=== PATIENT | female | born 1995 | race Caucasian/White ===

== ENCOUNTER 2019-11-25 15:28 | Emergency (ER) | payer OTHER ==
[~2019-11-25] VITALS: Ht 160 cm; Wt 49.9 kg
[2019-11-25] MEDS ORDERED: FOLIC ACID0.8 M1 (15:42)
[2019-11-25] MEDS ORDERED: PRENA1 CHEW TA1.4 MG (15:42)
== END 2019-11-25 19:49 | disposition home or self-care (01) ==
LOC: ER 15:28
DX: O98.512 Other viral diseases complicating pregnancy, second trimester (principal); Z03.818 Encounter for observation for suspected exposure to other biological agents ruled out; R53.81 Other malaise

== ENCOUNTER 2020-01-14 10:14 | Inpatient (IN) | payer OTHER ==
[~2020-01-14] VITALS: Ht 160 cm; Wt 59.0 kg
[~2020-01-14 10:14] MED LIST: FOLIC ACID0.8 M1; PRENA1 CHEW TA1.4 MG
== END 2020-02-18 13:25 | disposition home or self-care (01) | DRG 807 ==
LOC: LDR 02-16 06:24 → OB/GYN 02-16 18:42
PROVIDERS: ADMIT Obstetrics & Gynecology; ATTEND Obstetrics & Gynecology
PROC: 10E0XZZ Delivery of Products of Conception, External Approach (ICD-10-PCS; principal; 2020-02-16)
PROC: 0UQGXZZ Repair Vagina, External Approach (ICD-10-PCS; 2020-02-16)
PROC: 3E0P7VZ Introduction of Hormone into Female Reproductive, Via Natural or Artificial Opening (ICD-10-PCS; 2020-02-16)
PROC: 3E033VJ Introduction of Other Hormone into Peripheral Vein, Percutaneous Approach (ICD-10-PCS; 2020-02-16)
PROC: 4A1HXCZ Monitoring of Products of Conception, Cardiac Rate, External Approach (ICD-10-PCS; 2020-02-16)
DX: O71.4 Obstetric high vaginal laceration alone (principal); Z37.0 Single live birth; Z3A.39 39 weeks gestation of pregnancy; Z20.828 Contact with and (suspected) exposure to other viral communicable diseases